=== PATIENT | male | born 1995 | race Caucasian/White ===

== ENCOUNTER 2022-07-31 07:05 | Day surgery (SDC) | payer OTHER ==
[~2022-07-31] VITALS: Ht 175.3 cm; Wt 81.0 kg
[2022-07-31] VITALS (229 sets, daily range): BP systolic 89–146; BP diastolic 48–95
[2022-07-31 07:39] LABS: BASO% 0.8 % (0-3); EOS% 5.9 % (0-8); HEMATOCRIT 39.4 % (39.0-50.0); HEMOGLOBIN 13.9 g/dl (14.0-18.0); LYMPH% 42.8 % (15-41); MEAN CELL VOLUME 91.2 fL CALC (80.0-100.0); MEAN CORPUSCULAR HGB 32.2 pG CALC (26.0-32.0); MEAN CORPUSCULAR HGB CONC 35.3 g/dL CAL (32.0-36.0); MONO% 11.5 % (2-13); NEUT# 1.93 thou/uL (1.82-7.42); RED BLOOD COUNT 4.32 mill/uL (4.70-6.10); RED CELL DISTRI WIDTH 11.7 % (11.5-15.5)
[2022-07-31 08:16] LABS: ALBUMIN 4.6 g/dL (3.2-5.0); ALKALINE PHOSPHATASE 61 u/l (38-126); ANION GAP 12 (6-22 (CALC)); BUN 14 mg/dL (9-20); BUN/CREATININE RATIO 16 (12-20 (CALC)); CARBON DIOXIDE 30 mmol/l (22-30); CHLORIDE 107 mmol/l (95-108); CREATININE 0.9 mg/dL (0.7-1.3); GFR FOR AFR.AMER. > 60 ML/MIN (>=60 (CALC)); GFR OTHER RACES > 60 ML/MIN (>=60 (CALC)); POTASSIUM 4.1 mmol/l (3.5-5.1); SGOT/AST 55 u/l (17-59); SODIUM 145 mmol/l (137-146); TOTAL PROTEIN 7.3 g/dL (6.3-8.2)
[2022-07-31] MEDS ORDERED: KLONOPIN2 MG PO (13:58)
[2022-07-31] MEDS ORDERED: NALTREXONE50 MG PO (13:59)
[2022-07-31] MEDS ORDERED: CLONIDINE0.1 MG PO (13:59)
[2022-08-01 03:33] VITALS: BP 104/55
[2022-08-01 04:39] LABS: BASO% 0.2 % (0-3); HEMATOCRIT 35.4 % (39.0-50.0); HEMOGLOBIN 12.9 g/dl (14.0-18.0); IMMATURE GRANULOCYTES 0.3 % (0.0-5.0); LYMPH% 11.1 % (15-41); MEAN CELL VOLUME 88.7 fL CALC (80.0-100.0); MEAN CORPUSCULAR HGB 32.3 pG CALC (26.0-32.0); MEAN CORPUSCULAR HGB CONC 36.4 g/dL CAL (32.0-36.0); MONO% 3.1 % (2-13); NEUT# 7.32 thou/uL (1.82-7.42); NEUT% 85.3 % (42-76); RED BLOOD COUNT 3.99 mill/uL (4.70-6.10); RED CELL DISTRI WIDTH 11.5 % (11.5-15.5)
[2022-08-01 04:57] LABS: ALBUMIN 4.1 g/dL (3.2-5.0); ALKALINE PHOSPHATASE 51 u/l (38-126); ANION GAP 11 (6-22 (CALC)); BILIRUBIN, TOTAL 1.4 mg/dL (0.0-1.4); BUN 10 mg/dL (9-20); BUN/CREATININE RATIO 14 (12-20 (CALC)); CARBON DIOXIDE 25 mmol/l (22-30); CHLORIDE 108 mmol/l (95-108); CREATININE 0.7 mg/dL (0.7-1.3); GFR FOR AFR.AMER. > 60 ML/MIN (>=60 (CALC)); GFR OTHER RACES > 60 ML/MIN (>=60 (CALC)); MAGNESIUM 1.9 mg/dL (1.6-2.3); POTASSIUM 3.3 mmol/l (3.5-5.1); SGOT/AST 44 u/l (17-59); SODIUM 141 mmol/l (137-146); TOTAL PROTEIN 6.8 g/dL (6.3-8.2)
[2022-08-01 06:35] VITALS: BP 104/55
[2022-08-01 08:00] VITALS: BP 104/55
== END 2022-08-01 15:03 | disposition home or self-care (01) | DRG 897 ==
LOC: ANR 07:05 → MS2 07:22 → ANR 08-01 15:03
PROVIDERS: Anesthesiology; ATTEND Anesthesiology Critical Care Medicine
DX: F11.20 Opioid dependence, uncomplicated (principal)
CPT/HCPCS: J2354